=== PATIENT | female | born 1965 | race Caucasian/White ===

== ENCOUNTER 2024-04-03 14:40 | Emergency (ER) | payer OTHER, MEDICARE ==
[~2024-04-03] VITALS: Ht 170.2 cm; Wt 60.9 kg
[2024-04-03] MEDS ORDERED: LEVO88TA3 PO (15:01)
[2024-04-03] MEDS ORDERED: BACT800T5 PO (17:42)
[2024-04-03 18:00] VITALS: BP 116/56; TEMP 98.7; O2SAT 98
[2024-04-03] MEDS: BOOSTRIX VACCINE (TETANUS/DIPHTH/ACEL. PERTUSSIS) 0.5ML SYR IM ONE (18:01)
== END 2024-04-03 18:05 | disposition home or self-care (01) ==
LOC: M ED 14:40
DX: L03.115 Cellulitis of right lower limb (principal); E03.9 Hypothyroidism, unspecified; F12.10 Cannabis abuse, uncomplicated; F10.10 Alcohol abuse, uncomplicated; Z85.44 Personal history of malignant neoplasm of other female genital organs; Z79.899 Other long term (current) drug therapy; Z23 Encounter for immunization